=== PATIENT | female | born 1955 | race Caucasian/White ===

== ENCOUNTER 2017-03-23 06:01 | Day surgery (SDC) | payer MEDICARE, OTHER ==
[~2017-03-23] VITALS: Ht 162.6 cm; Wt 60.9 kg
[~2017-03-23 06:01] MED LIST: ALBUTEROL SULFATE 2.5 MG/0.5 ML NEB SOLUTION NEB ONE; BENZOCAINE 20% 50 MCG/SPRAY 57 GM TP ONE; LIDOCAINE HCL 2% 30 ML JELLY TP ONE; LIDOCAINE HCL 2% 5 ML JELLY TP ONE; LIDOCAINE HCL 4% 50 ML SOLUTION TP ONE; SODIUM CHLORIDE 0.9% 1,000 ML IV ONE
[2017-03-23] MEDS ORDERED: SODIUM CHLORIDE 0.9% 1,000 ML IV ONE (06:15)
[2017-03-23] MEDS ORDERED: MIDAZOLAM HCL 2 MG/2 ML VIAL ONE (07:19)
[2017-03-23] MEDS ORDERED: FentaNYL CITRATE-PF 100 MCG/2 ML VIAL ONE (07:20)
[2017-03-23] MEDS ORDERED: IPRATROPIUM BROMIDE 0.5 MG/2.5 ML NEB SOLUTION NEB ONE (08:09)
[2017-03-23] MEDS ORDERED: ALBUTEROL SULFATE 2.5 MG/0.5 ML NEB SOLUTION NEB ONE (08:10)
[2017-03-23] MEDS ORDERED: MethylPREDNISolone SOD SUCC 125 MG/2 ML VIAL IVP ONE (08:30)
[2017-03-23] MEDS ORDERED: OXYGEN THERAPY IH SCH (20:00)
== END 2017-03-23 09:55 | disposition home or self-care (01) ==
LOC: SURGERY 06:01
PROVIDERS: ATTEND Internal Medicine Critical Care Medicine
DX: J38.4 Edema of larynx (principal); B37.0 Candidal stomatitis; J45.909 Unspecified asthma, uncomplicated; J44.9 Chronic obstructive pulmonary disease, unspecified; B19.20 Unspecified viral hepatitis C without hepatic coma; K21.9 Gastro-esophageal reflux disease without esophagitis; F17.210 Nicotine dependence, cigarettes, uncomplicated; Z88.2 Allergy status to sulfonamides; Z98.890 Other specified postprocedural states; Z85.41 Personal history of malignant neoplasm of cervix uteri; Z85.828 Personal history of other malignant neoplasm of skin
CPT/HCPCS: 31623; 31624; 71010; 87015 ×2; 87070; 87101; 87147; 87205; 87220; 88108; 88312; J2250; J2930; J3010; J7030; 31622

== ENCOUNTER 2021-05-08 06:52 | Day surgery (SDC) | payer MEDICARE, OTHER ==
[2021-05-07 10:07] LABS: COVID AG,FIA SOURCE NASOPHARYNGEAL
[~2021-05-08] VITALS: Ht 162.6 cm; Wt 63.6 kg
[~2021-05-08 06:52] MED LIST changes: -ALBUTEROL SULFATE 2.5 MG/0.5 ML NEB SOLUTION NEB ONE; +AMLO5TAB66 PO; -BENZOCAINE 20% 50 MCG/SPRAY 57 GM TP ONE; +FAMO40TA7 PO; -LIDOCAINE HCL 2% 30 ML JELLY TP ONE; -LIDOCAINE HCL 2% 5 ML JELLY TP ONE; -LIDOCAINE HCL 4% 50 ML SOLUTION TP ONE; +MELO-108 PO; +MONT10TA32 PO; +OMEP40CA21 PO
[2021-05-08] MEDS ORDERED: BENZOCAINE 20% 50 MCG/SPRAY 57 GM TP ONE (06:53)
[2021-05-08] MEDS ORDERED: LIDOCAINE 2% 30 ML JELLY TP ONE (06:53)
[2021-05-08] MEDS ORDERED: ALBUTEROL SULFATE 2.5 MG/0.5 ML NEB SOLUTION NEB ONE (06:53)
[2021-05-08] MEDS ORDERED: SODIUM CHLORIDE 0.9% 1,000 ML ONE (06:59)
[2021-05-08] MEDS ORDERED: FentaNYL CITRATE PF 100 MCG/2 ML VIAL ONE (07:47)
[2021-05-08] MEDS ORDERED: MIDAZOLAM HCL 5 MG/ML VIAL ONE (07:48)
[2021-05-08] MEDS ORDERED: MethylPREDNISolone SOD SUCC 125 MG/2 ML VIAL IVP ONE (09:15)
[2021-05-08] MEDS ORDERED: MethylPREDNISolone SOD SUCC 125 MG/2 ML VIAL ONE (10:01)
[2021-05-08] MEDS ORDERED: OXYGEN THERAPY IH SCH (20:00)
== END 2021-05-08 10:45 | disposition home or self-care (01) ==
LOC: SURGERY 06:52
PROVIDERS: ATTEND Internal Medicine Critical Care Medicine
DX: J38.4 Edema of larynx (principal); B37.0 Candidal stomatitis; F17.210 Nicotine dependence, cigarettes, uncomplicated; J43.8 Other emphysema; I10 Essential (primary) hypertension; Z88.2 Allergy status to sulfonamides; Z98.890 Other specified postprocedural states
CPT/HCPCS: 31623; 31624; 71045; 87015; 87070; 87101; 87205; 87206; 87220; 87426; 88108; 88184; 88185; 88312; C9803; J2250; J2930; J3010; J7030; J7613